=== PATIENT | male | born 1970 | race Two or more races ===

== ENCOUNTER 2019-08-18 06:00 | Day surgery (SDC) | payer OTHER ==
[2019-08-18] MEDS ORDERED: ZESTRIL20 MG PO (08:08)
[2019-08-18] MEDS ORDERED: CRESTOR (08:09)
[2019-08-18] MEDS ORDERED: NORVASC2.5 M1 PO (08:10)
== END 2019-08-18 11:00 | disposition still patient (30) ==
LOC: CIR.AMB 06:00
DX: K60.3 Anal fistula (principal); D12.8 Benign neoplasm of rectum